=== PATIENT | male | born 1980 | race Caucasian/White ===

== ENCOUNTER 2018-01-10 11:39 | Emergency (ER) | payer MEDICAID, OTHER ==
[~2018-01-10] VITALS: Ht 182.9 cm; Wt 101.2 kg
[2018-01-10 11:42] VITALS: BP 147/94
[2018-01-10] MEDS ORDERED: BICILLIN-LA 2,400,000 UNITS/4 ML IM ONE (12:30)
== END 2018-01-10 13:19 | disposition home or self-care (01) ==
LOC: ED 13:10
DX: L98.8 Other specified disorders of the skin and subcutaneous tissue (principal)
CPT/HCPCS: 36415; 86592; 96372; 99283; J0561